=== PATIENT | female | born 1990 | race African-American/Black ===

== ENCOUNTER 2017-04-18 10:00 | Emergency (ER) | payer MEDICAID ==
[~2017-04-18] VITALS: Ht 167.6 cm; Wt 72.0 kg
[2017-04-18 16:02] LABS: CLARITY URINE CLEAR (CLEAR); COLOR URINE YELLOW (YELLOW); KETONES URINE 1+ (NEGATIVE); LEUKOCYTE ESTERASE URINE NEGATIVE (NEGATIVE); NITRITE URINE NEGATIVE (NEGATIVE); OCCULT BLOOD URINE NEGATIVE (NEGATIVE); PROTEIN URINE NEGATIVE (NEGATIVE); SPECIFIC GRAVITY URINE 1.023 (1.005-1.030)
[2017-04-18 16:23] LABS: BASOPHILS % 0.5 % (0.0-2.0); EOSINOPHILS % 0.7 % (0.0-5.0); HEMATOCRIT. 41.3 % (36.0-48.0); HEMOGLOBIN. 14.4 g/dL (12.0-16.0); LYMPHOCYTES % 26.2 % (20.0-50.0); MEAN CORPUSCULAR HEMOGLOBIN 32.3 pg (28.0-32.0); MEAN PLATELET VOLUME 7.4 fl (7.4-10.4); MONOCYTES % 5.9 % (2.0-8.0); NEUTROPHILS % 66.7 % (40.0-76.0); PLATELET 334 x1000/uL (130-400); RED BLOOD CELL COUNT 4.44 mill/uL (4.2-5.4); RED CELL DISTRIBUTION WIDTH 13.1 % (11.6-14.6)
[2017-04-18 16:32] LABS: CARBON DIOXIDE 25 mEq/L (21-32); CHLORIDE 103 mEq/L (98-107)
[2017-04-18 18:49] VITALS: BP 171/88
[2017-04-18] MEDS: FLUCONAZOLE 150MG TABLET PO NR (19:04)
[2017-04-18] MEDS: METRONIDAZOLE 500MG TABLET PO NR (19:04)
== END 2017-04-18 19:07 | disposition home or self-care (01) ==
LOC: ER 11:35
DX: B37.3 Candidiasis of vulva and vagina (principal); F12.10 Cannabis abuse, uncomplicated
CPT/HCPCS: 36415; 80053; 81003; 81025; 85025; 87210; 87491; 87591; 99284; Z7610